=== PATIENT | female | born 1965 | race Hispanic/Latino ===

== ENCOUNTER 2018-12-13 20:14 | Emergency (ER) | payer SELFPAY ==
[2018-12-13] MEDS ORDERED: MORPHINE 4 MG/ML SYR ONE (20:33)
[2018-12-13] MEDS ORDERED: TETANUS & DIPHTHERIA TOX,ADULT 0.5 ML VIAL ONE (20:33)
[2018-12-13] MEDS ORDERED: ONDANSETRON 4 MG/2 ML VIAL ONE (20:33)
[2018-12-13] MEDS ORDERED: NA CHLORIDE 0.9% 1,000 ML ONE (20:33)
[2018-12-13 20:48] LABS: Absolute Lymphocytes (CBC) 5.1 K/uL (0.7-4.9); Basophils % 0.4 % (0-1.3); Hematocrit 43.4 % (36.0-45.0); Lymphocytes % 52.5 % (15.3-44.8); MPV 8.2 fL (7.6-11.3); RBC Red Blood Cell Count 4.81 M/uL (3.86-4.86)
[2018-12-13 20:51] LABS: Protime INR 0.95
[2018-12-13 21:07] LABS: Potassium 3.6 mmol/L (3.5-5.1)
[2018-12-13 21:21] LABS: Blood Morphology Comment NOT SEEN (NOT SEEN); Platelet Estimate ADEQ; Urine White Blood Cell Casts OK
[2018-12-13] MEDS ORDERED: MEPERIDINE HCL 50 MG/ML ONE (22:11)
--- NOTE | 2018-12-13 23:20 | EDPHYS ---
Physician Documentation [facility] Name: Francisco J Keen Age: 53 yrs Sex: Female : 1965 Arrival Date: 12/13/2018 Time: 20:15 Bed 6 Private MD: ED Physician Mike Robledo HPI: 12/13 20:32 This 53 yrs old Female presents to ER via Wheelchair with complaints of Snake pkl bite. 20:32 by a snake. Onset: The symptoms/episode began/occurred just prior to arrival, 0.5 pkl hour(s) ago. Associated signs and symptoms: Pertinent positives: pain at site of bite. No systemic symptoms. 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 - Social history:: Smoking status: Patient/guardian denies using tobacco. - Ebola Screening: : No symptoms or risks identified at this time. ROS: 20:32 Eyes: Negative for injury, pain, redness, and discharge, ENT: Negative for injury, pkl pain, and discharge, Neck: Negative for injury, pain, and swelling, Cardiovascular: Negative for chest pain, palpitations, and edema, Respiratory: Negative for shortness of breath, cough, wheezing, and pleuritic chest pain, Abdomen/GI: Negative for abdominal pain, nausea, vomiting, diarrhea, and constipation, Back: Negative for injury and pain, : Negative for injury, bleeding, discharge, and swelling. 20:32 MS/extremity: Positive for bite, of the left middle toe. 20:32 Skin: Positive for erythema, of the left middle toe. 20:32 Neuro: Negative for altered mental status, dizziness, weakness. Exam: 20:32 Head/Face: Normocephalic, atraumatic. Eyes: Pupils equal round and reactive to light, pkl extra-ocular motions intact. Lids and lashes normal. Conjunctiva and sclera are non-icteric and not injected. Cornea within normal limits. Periorbital areas with no swelling, redness, or edema. ENT: Nares patent. No nasal discharge, no septal abnormalities noted. Tympanic membranes are normal and external auditory canals are clear. Oropharynx with no redness, swelling, or masses, exudates, or evidence of obstruction, uvula midline. Mucous membranes moist. Neck: Trachea midline, no thyromegaly or masses palpated, and no cervical lymphadenopathy. Supple, full range of motion without nuchal rigidity, or vertebral point tenderness. No Meningismus. Chest/axilla: Normal chest wall appearance and motion. Nontender with no deformity. No lesions are appreciated. Cardiovascular: Regular rate and rhythm with a normal S1 and S2. No gallops, murmurs, or rubs. Normal PMI, no JVD. No pulse deficits. Respiratory: Lungs have equal breath sounds bilaterally, clear to auscultation and percussion. No rales, rhonchi or wheezes noted. No increased work of breathing, no retractions or nasal flaring. Abdomen/GI: Soft, non-tender, with normal bowel sounds. No distension or tympany. No guarding or rebound. No evidence of tenderness throughout. Back: No spinal tenderness. No costovertebral tenderness. Full range of motion. 20:32 Musculoskeletal/extremity: Extremities: grossly normal except: noted in the left middle toe: 20:32 Musculoskeletal/extremity: puncture wounds noted. 20:32 Skin: Appearance: erythema noted left middle toe. 20:32 Neuro: Orientation: is normal, Mentation: is normal, Cranial nerves: grossly normal, pkl Motor: is normal, Sensation: is normal. Vital Signs: 20:31 BP 148 / 92; Pulse 70; Resp 18; Temp 97.4; Pulse Ox 100% ; Weight 68.04 kg; Height 5 ea ft. 5 in. (165.10 cm); Pain 10/10; 22:40 BP 110 / 82; Pulse 62; Resp 16 S; Pulse Ox 96% on R/A; bb 23:46 BP 119 / 80; Pulse 60; Resp 19 S; Temp 97.6(O); Pulse Ox 98% on R/A; bb 20:31 Body Mass Index 24.96 (68.04 kg, 165.10 cm) ea MDM: 20:15 Patient medically screened. pkl 23:15 Data reviewed: vital signs, nurses notes, lab test result(s). ED course: Patient pkl feeling better. Pain in left middle toe improved. No symptomatic symptoms. Swelling around bite and left foot subsiding. Advised to follow up with Dr. Malone on Sunday. Patient and family understood instructions.. 12/13 20:28 Order name: CBC with Diff; Complete Time: 21:31 pkl 12/13 20:28 Order name: Chem 7; Complete Time: : pkl 12/13 20:28 Order name: PT-INR; Complete Time: : pkl 12/13 20: Order name: Fibrinogen; Complete Time: : pkl 12/13 21:21 Order name: CBC Smear Scan; Complete Time: 21: EDMS Administered Medications: 20:49 Drug: NS 0.9% 1000 ml Route: IV; Rate: 125 ml/hr; Site: right antecubital; bb 23:47 Follow up: IV Status: Order to discontinue infusion; IV Intake: 275ml bb 20:49 Drug: Tetanus-Diphtheria Toxoid Adult 0.5 ml {Validation Leader: [employer]. Exp: 07/23/2020. Lot #: [id number]. } Route: IM; Site: left deltoid; 22:00 Follow up: Response: No adverse reaction ea 20:50 Drug: morphine 4 mg Route: IVP; Site: right antecubital; bb 21:15 Follow up: Response: No adverse reaction; Pain is decreased; RASS: Alert and Calm (0) ea 20:50 Drug: Zofran 4 mg Route: IVP; Site: right antecubital; bb 21:15 Follow up: Response: No adverse reaction; Marked relief of symptoms ea 22:15 Drug: Demerol 50 mg Route: IVP; Site: right antecubital; ea 23:18 Follow up: Response: No adverse reaction; Pain is decreased ea 23:23 Drug: KeFLEX 500 mg Route: PO; ea 23:47 Follow up: Response: No adverse reaction bb Disposition: 12/13/18 23:19 Discharged to Home. Impression: Snake bite left middle toe. - Condition is Stable. - Prescriptions for Keflex 500 mg Oral Capsule - take 1 capsule by ORAL route every 6 hours for 7 days; 28 capsule. - Medication Reconciliation Form, Thank You Letter, Antibiotic Education, Prescription Opioid Use form. - Follow up: Wayne Malone MD; When: 2 - 3 days; Reason: Re-evaluation by your physician. - Problem is new. - Symptoms have improved. Signatures: Dispatcher [employer] EDMS Mike Robledo MD MD pkl Callie Phillips, RN Skylar Ballard RN RN ea Corrections: (The following items were deleted from the chart) 23:19 23:19 12/13/2018 23:19 Discharged to Home. Impression: Snake bite left middle toe. pkl Condition is Stable. Forms are Medication Reconciliation Form, Thank You Letter, Antibiotic Education, Prescription Opioid Use. Follow up: Wayne Malone; When: 2 - 3 days; Reason: Re-evaluation by your physician. pkl 23:48 23:19 12/13/2018 23:19 Discharged to Home. Impression: Snake bite left middle toe. bb Condition is Stable. Forms are Medication Reconciliation Form, Thank You Letter, Antibiotic Education, Prescription Opioid Use. Follow up: Wayne Malone; When: 2 - 3 days; Reason: Re-evaluation by your physician. Problem is new. Symptoms have improved. pkl
--- NOTE | 2018-12-13 23:20 | ER ---
Nurse's Notes [facility] Name: Francisco J Keen Age: 53 yrs Sex: Female : 1965 Arrival Date: 12/13/2018 Time: 20:15 Bed 6 Private MD: Diagnosis: Snake bite left middle toe Presentation: 12/13 20:25 Presenting complaint: Patient states: Reports she was bit by a flesh colored snake in ea her left middle toe about thirty minutes ago. Denies swelling, and pain to her left lower foot. Transition of care: patient was not received from another setting of care. Onset of symptoms was December 13, 2018. Risk Assessment: Do you want to hurt yourself or someone else? Patient reports no desire to harm self or others. Initial Sepsis Screen: Does the patient meet any 2 criteria? No. Patient's initial sepsis screen is negative. Does the patient have a suspected source of infection? No. Patient's initial sepsis screen is negative. Care prior to arrival: None. 20:25 Method Of Arrival: Wheelchair ea 20:25 Acuity: ANILA 3 ea Triage Assessment: 20:27 Bite description: bite sustained to plantar aspect of left third toe was sustained ea 30-60 minutes ago. by a snake, animal information: vaccination(s) is not applicable. General: Appears uncomfortable, Behavior is appropriate for age. Pain: Complains of pain in left foot. Neuro: Level of Consciousness is awake, alert, obeys commands, Oriented to person, place, time. Respiratory: Airway is patent Respiratory effort is even, unlabored, Respiratory pattern is regular, symmetrical. GI: Patient currently denies nausea, vomiting. Derm: swelling and discoloration noted to third toe on left foot. 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 - Social history:: Smoking status: Patient/guardian denies using tobacco. - Ebola Screening: : No symptoms or risks identified at this time. Screenin:27 Abuse screen: Denies threats or abuse. Nutritional screening: No deficits noted. ea Tuberculosis screening: No symptoms or risk factors identified. Fall Risk None identified. Assessment: 20:20 General: Appears in no apparent distress. uncomfortable, Behavior is cooperative, bb anxious. Pain: Complains of pain in left foot and plantar aspect of left third toe Pain currently is 10 out of 10 on a pain scale. Pain began 1 hour ago. 20:20 Neuro: Level of Consciousness is awake, alert, obeys commands, Oriented to person, bb place, time, situation. Cardiovascular: Heart tones S1 S2 present Capillary refill < 3 seconds Patient's skin is warm and dry. Respiratory: Respiratory effort is even, unlabored, Respiratory pattern is regular. GI: No signs and/or symptoms were reported involving the gastrointestinal system. Derm: Skin is intact, Skin is pink, warm \T\ dry. pt reports snake bite to left middle toe which is swollen with dried blood swelling extends onto top of foot. Musculoskeletal: Circulation, motion, and sensation intact. 21:20 Reassessment: Patient and/or family updated on plan of care and expected duration. Pain bb level reassessed. Patient is alert, oriented x 3, equal unlabored respirations, skin warm/dry/pink. IV site intact, patent with fluids infusing. 22:30 Reassessment: Patient and/or family updated on plan of care and expected duration. Pain bb level reassessed. Patient is alert, oriented x 3, equal unlabored respirations, skin warm/dry/pink. pt being monitored no new swelling or redness noted pt states she is feeling better. 23:30 Reassessment: Patient and/or family updated on plan of care and expected duration. Pain bb level reassessed. pt and family verbalized understanding of and agree to plan of care discharge instructions given pt ambulated with steady gait to exit accompanied by family. Vital Signs: 20:31 BP 148 / 92; Pulse 70; Resp 18; Temp 97.4; Pulse Ox 100% ; Weight 68.04 kg; Height 5 ea ft. 5 in. (165.10 cm); Pain 10/10; 22:40 BP 110 / 82; Pulse 62; Resp 16 S; Pulse Ox 96% on R/A; bb 23:46 BP 119 / 80; Pulse 60; Resp 19 S; Temp 97.6(O); Pulse Ox 98% on R/A; bb 20:31 Body Mass Index 24.96 (68.04 kg, 165.10 cm) ea ED Course: 20:15 Patient arrived in ED. ds1 20:15 Mike Robledo MD is Attending Physician. pkl 20:27 Triage completed. ea 20:27 Patient has correct armband on for positive identification. Placed in gown. Bed in low ea position. Call light in reach. 20:27 Arm band placed on right wrist. Patient placed in an exam room, on a stretcher, on ea pulse oximetry. 20:27 Inserted saline lock: 20 gauge in right antecubital area, using aseptic technique. oe Blood collected. 20:44 Callie Phillips, DIXON is Primary Nurse. bb 23:19 Wayne Malone MD is Referral Physician. pkl 23:46 No provider procedures requiring assistance completed. intact, bleeding controlled, No bb redness/swelling at site. Pressure dressing applied. Administered Medications: 20:49 Drug: NS 0.9% 1000 ml Route: IV; Rate: 125 ml/hr; Site: right antecubital; bb 23:47 Follow up: IV Status: Order to discontinue infusion; IV Intake: 275ml bb 20:49 Drug: Tetanus-Diphtheria Toxoid Adult 0.5 ml {Group Therapy Counselor: [employer]. Exp: bb 07/23/2020. Lot #: [id number]. } Route: IM; Site: left deltoid; 22:00 Follow up: Response: No adverse reaction ea 20:50 Drug: morphine 4 mg Route: IVP; Site: right antecubital; bb 21:15 Follow up: Response: No adverse reaction; Pain is decreased; RASS: Alert and Calm (0) ea 20:50 Drug: Zofran 4 mg Route: IVP; Site: right antecubital; bb 21:15 Follow up: Response: No adverse reaction; Marked relief of symptoms ea 22:15 Drug: Demerol 50 mg Route: IVP; Site: right antecubital; ea 23:18 Follow up: Response: No adverse reaction; Pain is decreased ea 23:23 Drug: KeFLEX 500 mg Route: PO; ea 23:47 Follow up: Response: No adverse reaction bb Intake: 23:47 IV: 275ml; Total: 275ml. bb Outcome: 23:19 Discharge ordered by . pkl 23:46 Discharged to home ambulatory, with family. bb 23:46 Condition: stable 23:46 Discharge instructions given to patient, family, Instructed on discharge instructions, follow up and referral plans. medication usage, Demonstrated understanding of instructions, follow-up care, medications, Prescriptions given X 1. 23:48 Patient left the ED. bb Signatures: Mike Robledo MD MD pkl Sanford, Demi ds1 Callie Phillips RN RN Kris Aceves Elena RN RN britney
[2018-12-13] MEDS ORDERED: CEPHALEXIN 250 MG CAP ONE (23:21)
[2018-12-14 01:47] VITALS: BP 119/80; TEMP 97.6; O2SAT 98
== END 2018-12-13 23:48 | disposition home or self-care (01) ==
LOC: ER 20:14
DX: T63.001A Toxic effect of unspecified snake venom, accidental (unintentional), initial encounter (principal); Y92.9 Unspecified place or not applicable
CPT/HCPCS: 36415; 80048; 85025; 85384; 85610; 90471; 90714; 96361; 96374; 96375; 99284; J2175; J2405; J7030